=== PATIENT | female | born 1965 | race Caucasian/White ===

== ENCOUNTER 2019-05-14 23:22 | Emergency (ER) | payer OTHER ==
[~2019-05-14] VITALS: Ht 157.5 cm; Wt 68.0 kg
[2019-05-15 00:50] VITALS: BP 145/70
== END 2019-05-15 00:50 | disposition home or self-care (01) ==
LOC: ER 23:22
DX: Z11.3 Encounter for screening for infections with a predominantly sexual mode of transmission (principal)